=== PATIENT | male | born 1965 | race Caucasian/White ===

== ENCOUNTER 2021-07-15 21:07 | Emergency (ER) | payer OTHER ==
[~2021-07-15] VITALS: Ht 180.3 cm; Wt 77.3 kg
--- NOTE | 2021-07-16 | NUR ---
Pt pink, alert, no acute/resp distress. Bed in lowest position, wheels locked, rail 2/2 up, call jones in reach. Pt. laying supine, able to reposition self as needed.
[2021-07-16] MEDS ORDERED: acetaminophen 325mg tablet PO ONE (00:50)
[2021-07-16] MEDS ORDERED: ibuprofen tablet 400 MG TABLET PO ONE (00:50)
[2021-07-16] MEDS ORDERED: ondansetron 4mg rapidly disintigrating tab PO ONE (00:55)
[2021-07-16] MEDS ORDERED: BEBTELOVIMAB 175 MG/2 ML VIAL IV ONE (04:05)
[2021-07-16 05:18] VITALS: BP 137/69
== END 2021-07-16 05:20 | disposition home or self-care (01) ==
LOC: ER 21:09
DX: U07.1 COVID-19 (principal); J02.9 Acute pharyngitis, unspecified; R11.0 Nausea; Z88.0 Allergy status to penicillin
CPT/HCPCS: 87077; 87081; 87502; 87503; 87635; 87880; 99284; C9803; M0222; Q0222

== ENCOUNTER 2023-08-29 11:38 | Outpatient (CLI) | payer OTHER ==
[2023-08-29 12:54] LABS: BILIRUBIN,URINE NEGATIVE (Neg); CLARITY,URINE CLEAR (Clear); COLOR,URINE YELLOW (Yellow); GLUCOSE, URINE 250 mg/dl (Neg); KETONES,URINE TRACE mg/dl (Neg); LEUKOCYTE ESTERASE ,URINE NEGATIVE (Neg); NITRITES, URINE NEGATIVE (Neg); OCCULT BLOOD,URINE NEGATIVE (Neg); PROTEIN,URINE NEGATIVE (Neg); UROBILINOGEN,URINE 0.2 E.U/dL (0.2-1.0)
[2023-08-29 13:07] LABS: ALANINE AMINOTRANSFERASE 27 U/L (12-78); ALBUMIN 3.8 G/DL (3.4-5.0); ALKALINE PHOSPHATASE 91 IU/L (46-116); ANION GAP 7 (8-16); ASPARTATE AMINO TRANSFERASE 17 U/L (10-37); BILIRUBIN,TOTAL 2.4 MG/DL (0.1-1.0); BLOOD UREA NITROGEN 16 MG/DL (7-18); BUN/CREATININE RATIO 19.3 (10.0-20.0); CALCIUM 8.6 MG/DL (8.5-10.1); CHLORIDE 103 MMOL/L (99-107); CREATININE 0.83 MG/DL (0.60-1.10); GLUCOSE 186 MG/DL (70-104); POTASSIUM 4.4 MMOL/L (3.5-5.1); SODIUM 139 MMOL/L (135-145); TOTAL CARBON DIOXIDE 29.3 MMOL/L (24-32); TOTAL PROTEIN 7.5 G/DL (6.4-8.2); eGFR > 90 ML/MIN
[2023-08-29 13:18] LABS: UA COLLECTION TYPE NON-SPECIFIED
== END 2023-08-29 23:59 | disposition home or self-care (01) ==
LOC: RAD 11:38
PROVIDERS: ATTEND Chiropractor
DX: E11.9 Type 2 diabetes mellitus without complications (principal)
CPT/HCPCS: 36415; 80053; 81003